=== PATIENT | male | born 1955 | race Caucasian/White ===

== ENCOUNTER 2016-07-23 13:53 | Day surgery (SDC) | payer OTHER ==
[2016-07-23] MEDS ORDERED: TRIAMCINOLONE ACETONIDE 40 MG/ML SUS ONE (15:11)
[2016-07-23 15:32] VITALS: BP 122/75; PULSE 56; RESP 20; TEMP 97.6; O2SAT 97
== END 2016-07-23 15:50 | disposition home or self-care (01) | DRG 552 ==
LOC: SURG 13:53
PROVIDERS: ATTEND Nurse Anesthetist, Certified Registered
DX: M54.5 Low back pain (principal)
CPT/HCPCS: J3300

== ENCOUNTER 2016-09-17 13:09 | Day surgery (SDC) | payer OTHER ==
[2016-07-23 15:32] VITALS: O2SAT 97
[2016-09-17] MEDS ORDERED: TRIAMCINOLONE ACETONIDE 40 MG/ML SUS ONE (14:08)
[2016-09-17 14:52] VITALS: BP 124/76; PULSE 59; RESP 20; TEMP 97.9
== END 2016-09-17 14:55 | disposition home or self-care (01) | DRG 552 ==
LOC: SURG 13:09
PROVIDERS: ATTEND Nurse Anesthetist, Certified Registered
DX: M54.5 Low back pain (principal); M54.16 Radiculopathy, lumbar region; M99.83 Other biomechanical lesions of lumbar region
CPT/HCPCS: J3300

== ENCOUNTER 2016-11-05 13:45 | Day surgery (SDC) | payer OTHER ==
[2016-07-23 15:32] VITALS: O2SAT 97
[2016-11-05 14:03] VITALS: TEMP 97.6
[2016-11-05] MEDS: DEXAMETHASONE SOD PHOS PF 10 MG/ML SOL IJ ONE ×2 (14:31→14:38)
[2016-11-05] MEDS ORDERED: LIDOCAINE HCL 1% MPF SOL ONE (14:34)
[2016-11-05 14:54] VITALS: BP 116/78; PULSE 57; RESP 20
== END 2016-11-05 15:16 | disposition home or self-care (01) | DRG 552 ==
LOC: SURG 13:45
PROVIDERS: ATTEND Nurse Anesthetist, Certified Registered
DX: M99.83 Other biomechanical lesions of lumbar region (principal); M54.5 Low back pain
CPT/HCPCS: J1100; J2001

== ENCOUNTER 2017-10-10 19:55 | Emergency (ER) | payer BC, OTHER ==
[2017-10-10 20:15] VITALS: BP 127/77; PULSE 63; RESP 18; TEMP 97.7; O2SAT 96
[2017-10-10] MEDS ORDERED: TDAP VACCINE 0.5 ML SUS IM ONE (20:33)
== END 2017-10-10 20:50 | disposition home or self-care (01) ==
LOC: ED 19:55
DX: S61.213A Laceration without foreign body of left middle finger without damage to nail, initial encounter (principal); W26.8XXA Contact with other sharp object(s), not elsewhere classified, initial encounter
CPT/HCPCS: 12001; 90471; 90715; 99283; G0168

== ENCOUNTER 2018-06-16 07:09 | Day surgery (SDC) | payer BC ==
[2018-06-16] MEDS ORDERED: LIDOCAINE HCL 1% MPF 30 SOL ONE (07:39)
[2018-06-16] MEDS ORDERED: PROPOFOL 500 MG/50 ML EMU IV ONE (07:39)
[2018-06-16 09:05] VITALS: TEMP 97.4
[2018-06-16 09:21] VITALS: RESP 20
[2018-06-16 09:30] VITALS: BP 123/76; PULSE 63; O2SAT 100
== END 2018-06-16 09:41 | disposition home or self-care (01) ==
LOC: SURG 07:09
PROVIDERS: ATTEND Internal Medicine Gastroenterology
DX: Z12.11 Encounter for screening for malignant neoplasm of colon (principal); K22.70 Barrett's esophagus without dysplasia; L53.8 Other specified erythematous conditions; Q40.2 Other specified congenital malformations of stomach; Z80.0 Family history of malignant neoplasm of digestive organs; D12.3 Benign neoplasm of transverse colon; K64.8 Other hemorrhoids; K21.9 Gastro-esophageal reflux disease without esophagitis; Z83.71 Family history of colonic polyps
CPT/HCPCS: 99001; J2001; J2704